=== PATIENT | female | born 1950 | race Two or more races ===

== ENCOUNTER 2019-03-01 06:51 | Day surgery (SDC) | payer BC ==
[~2019-03-01] VITALS: Ht 170.2 cm; Wt 81.2 kg
[~2019-03-01 06:51] MED LIST: APIX5TAB PO; DILT120C54 PO; LEVO150T68 PO; METO25TA5 PO
[2019-03-01] MEDS ORDERED: HEPARIN IN NS 1000Units/500mL 1,500 ML ONE (07:16)
[2019-03-01] MEDS ORDERED: IOHEXOL 350 MG/ML 100ML IJ ONE ×3 (07:16→08:21)
[2019-03-01] MEDS ORDERED: LIDOCAINE 2%HCL (LOCAL ANESTH.) INJ 20ML MDV ONE ×2 (07:16→08:05)
[2019-03-01] MEDS ORDERED: MIDAZOLAM HCL 1MG/1ML-2 ML VIAL ONE (07:40)
[2019-03-01] MEDS ORDERED: SODIUM CHL 0.9% 0 ML ONE (07:40)
[2019-03-01] MEDS ORDERED: fentaNYL CITRATE 100 MCG/2 ML VL ONE (07:40)
[2019-03-01] MEDS ORDERED: ANGIOMAX 250 MG VIAL IV ONE (07:40)
[2019-03-01] MEDS ORDERED: ACETAMINOPHEN 325 MG TAB PO ONE (09:45)
== END 2019-03-01 12:26 | disposition home or self-care (01) ==
LOC: CATH 06:51
PROVIDERS: ATTEND Internal Medicine Cardiovascular Disease
DX: I20.0 Unstable angina (principal); I48.1 Persistent atrial fibrillation; I08.0 Rheumatic disorders of both mitral and aortic valves; I10 Essential (primary) hypertension; I83.893 Varicose veins of bilateral lower extremities with other complications; E03.9 Hypothyroidism, unspecified; E78.00 Pure hypercholesterolemia, unspecified; Z82.49 Family history of ischemic heart disease and other diseases of the circulatory system; Z79.899 Other long term (current) drug therapy; Z88.8 Allergy status to other drugs, medicaments and biological substances; Z88.1 Allergy status to other antibiotic agents
CPT/HCPCS: 93460; C1751; C1760; C1769; C1894; J1644; J2250; J3010; J7030; Q9967; 99152; 99153